=== PATIENT | male | born 1980 | race Caucasian/White ===

== ENCOUNTER 2025-05-11 14:45 | Outpatient (RCR) | payer OTHER, SELFPAY | END 2025-09-08 23:59 | disposition home or self-care (01) | PROVIDERS: Visit Provider Student in an Organized Health Care Education/Training Program | DX: S99.911D Unspecified injury of right ankle, subsequent encounter (principal); Z51.89 Encounter for other specified aftercare | CPT/HCPCS: 97110; 97140; 97161 ==